=== PATIENT | female | born 1960 | race American Indian/Alaskan Native ===

== ENCOUNTER 2016-09-26 07:35 | Day surgery (SDC) | payer OTHER ==
[2016-09-26] MEDS ORDERED: Propofol 200 MG/20 ML SDV ONE (08:45)
[2016-09-26] MEDS ORDERED: Midazolam 1 MG/ML 2 ML SDV ONE (08:46)
[2016-09-26] MEDS ORDERED: fentaNYL 100 MCG/2 ML SDV ONE (08:46)
[2016-09-26] MEDS ORDERED: Sodium Chloride 0.9% 1,000 ML IV SCH (09:00)
[2016-09-26 10:21] VITALS: BP 130/83
--- NOTE | 2016-09-26 11:46 | OR ---
DATE OF PROCEDURE: 09/26/2016 PROCEDURE: Colonoscopy. FINDINGS: 1. Biopsy of anastomotic site (no gross abnormalities). 2. Transverse colon polyp, 5 mm, completely removed using cold biopsy forceps. 3. Sigmoid colon biopsy. 4. Rectal polyp, completely removed using cold biopsy forceps. COMPLICATIONS: None. ANESTHESIOLOGY PHYSICIAN ASSISTANT: None. ANESTHESIA: MAC. PREOPERATIVE DIAGNOSIS: History of colorectal cancer. POSTOPERATIVE DIAGNOSIS: History of colorectal cancer. RISKS: Risks, benefits, alternatives, and limitations, including, but not limited to infection, bleeding, and perforation were explained to the patient and wished to proceed. PROCEDURE IN DETAIL: The patient was placed in left lateral decubitus position. Digital rectal exam was performed without abnormality. The scope was introduced and advanced atraumatically to the anastomotic site. No gross abnormalities. Random biopsies were performed of this area. The scope was brought back to the remainder of the colon, and the aforementioned polyps were biopsied and completely removed. In the sigmoid colon, there was a small area inflammation, this was biopsied using cold biopsy forceps. On retroflex, there are no abnormalities. No old or new blood. The patient tolerated the procedure well. Jere Cotter MD /[id number]
== END 2016-09-26 10:46 | disposition home or self-care (01) ==
LOC: JP.SDS 07:35
PROVIDERS: ATTEND Surgery
PROC: 0DBP8ZX Excision of Rectum, Via Natural or Artificial Opening Endoscopic, Diagnostic (ICD-10-PCS; principal; 2016-09-26)
PROC: 0DBN8ZX Excision of Sigmoid Colon, Via Natural or Artificial Opening Endoscopic, Diagnostic (ICD-10-PCS; 2016-09-26)
PROC: 0DBL8ZX Excision of Transverse Colon, Via Natural or Artificial Opening Endoscopic, Diagnostic (ICD-10-PCS; 2016-09-26)
DX: D12.7 Benign neoplasm of rectosigmoid junction (principal); K63.5 Polyp of colon; Z90.49 Acquired absence of other specified parts of digestive tract
CPT/HCPCS: 45380; 88305; J2250; J2704; J3010; J7040

== ENCOUNTER 2019-11-08 06:51 | Day surgery (SDC) | payer OTHER ==
[2019-11-08] MEDS ORDERED: Midazolam 1 MG/ML 2 ML SDV ONE (08:02)
[2019-11-08] MEDS ORDERED: fentaNYL 100 MCG/2 ML SDV ONE (08:02)
[2019-11-08] MEDS ORDERED: Propofol 200 MG/20 ML SDV ONE ×2 (08:02→08:24)
[2019-11-08] MEDS ORDERED: Sodium Chloride 0.9% 1,000 ML IV SCH (08:15)
[2019-11-08 09:58] VITALS: BP 103/64; PULSE 65
--- NOTE | 2019-11-09 12:58 | OR ---
DATE OF PROCEDURE: 11/08/2019 SURGEON: Jere Cotter MD PROCEDURE: Colonoscopy. FINDINGS: 1. Ascending colon polyp, approximately 1 cm, completely removed using hot snare wire device. 2. Polypoid-like lesion, possibly prominent small bowel versus polyp, biopsied using cold biopsy forceps. COMPLICATIONS: None. CLIENT DELIVERY MANAGER: None. ANESTHESIA: MAC. PREOPERATIVE DIAGNOSIS: History of colorectal cancer. POSTOPERATIVE DIAGNOSIS: History of colorectal cancer. RISKS: Risks, benefits, alternatives, and limitations including, but not limited to infection, bleeding, and perforation were explained to the patient, who wished to proceed. PROCEDURE IN DETAIL: The patient was placed in left lateral decubitus position. Digital rectal exam was performed without abnormality. Scope was introduced and advanced atraumatically to the anastomosis. There was a prominent area of possibly redundant small bowel from the anastomosis versus polyp. This was biopsied using cold biopsy forceps. In the more distal ascending colon, additional polyp was identified and removed using the hot snare wire device. Scope was brought back through the remainder of the colon and retroflexed. No evidence of old or new blood. No masses. No abnormalities on retroflexion. The patient tolerated the procedure well. Jere Cotter MD /[id number]
== END 2019-11-08 10:09 | disposition home or self-care (01) ==
LOC: JP.SDS 06:51
PROVIDERS: ATTEND Surgery
DX: Z12.11 Encounter for screening for malignant neoplasm of colon (principal); Z12.12 Encounter for screening for malignant neoplasm of rectum; D12.2 Benign neoplasm of ascending colon; J45.909 Unspecified asthma, uncomplicated; E78.5 Hyperlipidemia, unspecified; K21.9 Gastro-esophageal reflux disease without esophagitis; F41.9 Anxiety disorder, unspecified; E11.9 Type 2 diabetes mellitus without complications; E66.9 Obesity, unspecified; Z85.038 Personal history of other malignant neoplasm of large intestine
CPT/HCPCS: 45380; 45385; 88305; J2250; J2704; J3010; J7030

== ENCOUNTER 2020-03-06 07:12 | Day surgery (SDC) | payer OTHER ==
[2020-03-06] MEDS ORDERED: Propofol 200 MG/20 ML SDV ONE ×2 (07:13→08:45)
[2020-03-06] MEDS ORDERED: fentaNYL 100 MCG/2 ML SDV ONE (07:14)
[2020-03-06] MEDS ORDERED: Midazolam 1 MG/ML 2 ML SDV ONE (07:14)
[2020-03-06] MEDS ORDERED: Sodium Chloride 0.9% 1,000 ML IV SCH (08:00)
[2020-03-06 09:49] VITALS: BP 99/66; PULSE 66
--- NOTE | 2020-03-06 17:20 | OR ---
DATE OF PROCEDURE: 03/06/2020 SURGEON: Jere Cotter MD PROCEDURE: Colonoscopy. FINDINGS: Cecal polyp, approximately 1 cm, completely removed using hot snare wire device. COMPLICATIONS: None. CLIENT SERVICES REPRESENTATIVE: None. ANESTHESIA: MAC. PREOPERATIVE DIAGNOSIS: History of colon polyps. POSTOPERATIVE DIAGNOSIS: History of colon polyps. RISKS: Risks, benefits, alternatives, and limitations including, but not limited to infection, bleeding, and perforation were explained to the patient, who wished to proceed. PROCEDURE IN DETAIL: The patient was placed in the left lateral decubitus position. Digital rectal exam was performed without abnormality. Scope was introduced and advanced atraumatically to the ileocecal valve. A photo was taken. At the cecum, the remainder of the polyp was identified and this was noted to be consistent with previous biopsy. This was completely removed using hot snare wire device. No significant abnormal bleeding was noted. The scope was brought back through the remainder of the colon and retroflexed. The patient had a few diverticula. No evidence of old or new blood. No masses. No other abnormalities. The patient tolerated the procedure well. Jere Cotter MD /[id number]
== END 2020-03-06 10:00 | disposition home or self-care (01) ==
LOC: JP.SDS 07:12
PROVIDERS: ATTEND Surgery
DX: Z12.11 Encounter for screening for malignant neoplasm of colon (principal); D12.0 Benign neoplasm of cecum; K57.30 Diverticulosis of large intestine without perforation or abscess without bleeding; K21.9 Gastro-esophageal reflux disease without esophagitis; E11.9 Type 2 diabetes mellitus without complications; I25.2 Old myocardial infarction
CPT/HCPCS: 45385; J2250; J2704; J3010; J7030; 88305

== ENCOUNTER 2023-09-05 06:51 | Day surgery (SDC) | payer OTHER ==
[2023-09-05] MEDS ORDERED: Propofol 200 MG/20 ML SDV ONE ×2 (07:04→08:12)
[2023-09-05] MEDS ORDERED: fentaNYL 50 MCG/ML SDV ONE (07:04)
[2023-09-05] MEDS ORDERED: Midazolam 1 MG/ML 2 ML SDV ONE (07:04)
[2023-09-05] MEDS: Sodium Chloride 0.9% 1,000 ML IV SCH (07:41)
[2023-09-05 09:23] VITALS: BP 113/79; PULSE 59
== END 2023-09-05 09:40 | disposition home or self-care (01) ==
LOC: JP.SDS 06:51
PROVIDERS: ATTEND Surgery
DX: Z12.11 Encounter for screening for malignant neoplasm of colon (principal); D12.3 Benign neoplasm of transverse colon; D12.4 Benign neoplasm of descending colon; K57.30 Diverticulosis of large intestine without perforation or abscess without bleeding; K21.9 Gastro-esophageal reflux disease without esophagitis; E11.9 Type 2 diabetes mellitus without complications; Z80.0 Family history of malignant neoplasm of digestive organs
CPT/HCPCS: J2250; J2704; J3010; J7030